=== PATIENT | female | born 1965 | race Caucasian/White ===

== ENCOUNTER 2020-04-25 21:05 | Emergency (ER) | payer SELFPAY ==
[2020-04-25] VITALS (7 sets, daily range): BP systolic 109–143; BP diastolic 66–82; PULSE 65–75; RESP 13–28; TEMP 36.6; O2SAT 97–99; BMI 25.7
--- NOTE | 2020-04-25 21:15 | ED.CHESTPAIN ---
HPI - Chest Pain General Chief Complaint: Chest Pain Stated Complaint: CHEST PAIN LEFT ARM NUMBNESS Time Seen by Provider: 04/25/20 21:14 History of Present Illness HPI narrative: 54-year-old woman with no specific medical history presents with 3 days of increasing chest pain. She has noticed some left arm pain over the last number of weeks that she had attributed to some type of nerve compression issue over the last 3 days she has noticed more of a pinching pain in the left pectoralis and left central chest area sometimes associated with a squeezing sensation but not associated with diaphoresis, dyspnea, nausea or exertion. Today the left pectoralis squeezing seemed more severe and seem to be radiating down her left arm so she came in for further evaluation. Related Data Allergies Allergy/AdvReac Type Severity Reaction Status Date / Time aspirin Allergy Severe Anaphylaxis Verified 04/25/20 21:33 Review of Systems Review of Systems Narrative: Pertinent positive and negative findings as per HPI Remainder of review of systems is otherwise unremarkable for Constitutional: Fevers, chills, weakness ENT: No sore throat, neck pain, ear pain Respiratory: Cough, wheeze, dyspnea GI: Nausea, vomiting, diarrhea, change in bowel habits, black or bloody stools : Dysuria, hematuria, flank pain MS: Muscle weakness, numbness, joint swelling or warmth Skin: Rashes, nonhealing lesions Neuro: Syncope, dizziness, tingling Patient History Social History Smoking Status: Unknown if ever smoked Exam Narrative Exam Narrative: General: Healthy appearing, in no acute distress. Able to give a complete and coherent history. Well-nourished well-developed HEENT: Moist mucous membranes, normal sclera with reactive pupils, Neck: supple, no reproducible pain down the arm or into the upper chest with manipulation of cervical spine. No paraspinous muscle spasm. Chest: Pain is not reproduced with manipulation of the left pectoralis muscle or palpation along the sternal border Respiratory: Lungs are clear to auscultation, no wheezing no rales no rhonchi. Full and symmetrical air movement Cardiac: Regular rate and rhythm no murmurs no bruits Abdomen: Soft nontender good bowel tones, no flank pain Skin: Warm and dry, no rashes Neurologic: Grossly neurologically intact with no obvious asymmetries or abnormalities Extremities: No trauma, well perfused Psych: Cooperative, appropriate insight and affect Initial Vital Signs Initial Vital Signs: Vital Signs Temperature 97.8 F 04/25/20 21:22 Pulse Rate 74 04/25/20 21:22 Respiratory Rate 18 04/25/20 21:22 Blood Pressure 130/76 04/25/20 21:22 Pulse Oximetry 97 04/25/20 21:22 Course Orders Ordered: ED Orders 04/25/20 21:34 XR chest 1V Stat 04/25/20 21:41 Complete Blood Count AUTO DIFF Stat Comprehensive Metabolic Panel Stat Lipase Stat Partial Thromboplastin Time Stat Prothrombin Time INR Stat Troponin & CK Cardiac Panel Stat Discontinued Medications Acetaminophen (Tylenol) 120 mg PA Q4H PRN PRN Reason: Fever/Mild Pain (1-3) Vital Signs Vital signs: Vital Signs - 8 hr 04/25/20 22:30 04/25/20 23:00 04/25/20 23:30 Temperature Pulse Rate 70 66 65 Respiratory Rate 19 15 13 Blood Pressure 120/68 115/72 109/66 Pulse Oximetry 97 97 97 04/26/20 00:00 04/26/20 00:30 04/26/20 01:00 Temperature Pulse Rate 67 64 65 Respiratory Rate 15 21 13 Blood Pressure 121/72 123/72 114/72 Pulse Oximetry 98 98 98 04/26/20 02:07 Temperature 98.6 F Pulse Rate 66 Respiratory Rate 16 Blood Pressure 118/73 Pulse Oximetry 98 MDM - Chest Pain Medical Records Data Attestation: I reviewed the patient's medical records. Lab Data Attestation: I reviewed the patient's lab results. Result diagrams: 04/25/20 21:41 04/25/20 21:41 Labs: Lab Results 04/25/20 04/25/20 04/25/20 Range/Units 21:41 21:41 21:41 WBC 6.7 (4.5-11.0) X10^3/uL RBC 4.47 (4.0-5.2) X10^6/uL Hgb 12.5 (12.0-16.0) g/dL Hct 37.6 (36-46) % MCV 84.3 (80-100) fL MCH 28.1 (26-34) PG MCHC 33.3 (30-36) % RDW 13.7 (11.6-14.8) % Plt Count 263 (150-400) X10^3/uL Neut % (Auto) 57.4 (50-75) % Lymph % (Auto) 26.9 (25-40) % [place] % (Auto) 10.7 (3-14) % Eos % (Auto) 3.9 (2-4) % Baso % (Auto) 1.1 (0-2) % Neut # (Auto) 3800 (3798-3728) /uL Lymph # (Auto) 1800 (2888-1835) /uL [place] # (Auto) 700 (0-900) /uL Eos # (Auto) 300 (0-450) /uL Baso # (Auto) 100 (0-100) /uL PT 11.0 (10.1-12.7) SECONDS INR 1.0 (0.9-1.3) APTT 42 H (26.4-36.2) SECONDS Sodium 139 (137-145) mmol/L Potassium 3.4 (3.4-5.1) mmol/L Chloride 103 (98-107) mmol/L Carbon Dioxide 29 (22-32) mmol/L BUN 18 H (7-17) mg/dL Creatinine 0.58 (0.52-1.04) mg/dL Estimated GFR > 60.0 (>60) mL/min BUN/Creatinine Ratio 31.0 H (6-22) Glucose 110 H (70-100) mg/dL Calcium 10.2 (8.4-10.2) mg/dL Total Bilirubin 0.3 (0.2-1.3) mg/dL AST 24 (14-36) IU/L ALT 16 (<35) IU/L Alkaline Phosphatase 78 (38-126) U/L Total Creatine Kinase 60 (30-135) U/L CK-MB (CK-2) TNP CK-MB (CK-2) Rel Index TNP Troponin I < 0.012 (0.01-0.034) ng/mL Total Protein 7.4 (6.3-8.2) g/dL Albumin 4.7 (3.5-5.0) g/dL Globulin 2.7 (1.7-4.1) g/dL Albumin/Globulin Ratio 1.7 (1.0-2.8) Lipase 218 (23-300) U/L Imaging Data Chest x-ray: Attestation: I personally reviewed and interpreted this imaging study as follows: My Impression: No acute changes ECG Data Attestation: I personally reviewed and interpreted this ECG as follows: Interpretation: Normal sinus rhythm6 at a rate of8 Normal intervals, normal axis No acute ischemic changes MDM Narrative Medical decision making narrative: 54-year-old otherwise healthy woman presents with 3 days of chest pain. Workup is entirely reassuring with no evidence of acute coronary syndrome, NSTEMI or STEMI, pulmonary embolism, infection, pneumothorax or acute musculoskeletal injury. Suspect that this is related to radicular pain from the neck. Reassurance is given. She is safe for home discharge. Encouraged her to establish care with a find primary care physician she may well benefit from stress testing for further cardiac risk stratification and she will certainly benefit from routine cancer screening studies. Discharge Plan Departure Patient Disposition: Home Clinical Impression: Atypical chest pain Discharge Date/Time: 04/26/20 02:07 Instructions: DI for Atypical Chest Pain Activity Restrictions/Additional Instructions: Thank you for coming in today, it was definitely the correct choice to make. Your labs studies and exam are all very reassuring. I am not finding any evidence of a heart attack or heart attack like syndrome. There is no evidence of infection, collapsed lung or other life-threatening issues to cause her pain. I do believe the most likely explanation may end up being nerve pain from your neck. I would recommend that you establish care with a primary care physician, please contact our Health Resource referral line at [phone]. They can help you find a primary care physician. When you are healthy, it is nice to stay healthy and you are mature enough at this point the putting a bit of effort into maintaining her health is well worth it;) If you have new or worsening symptoms have increasing pain with sweating and shortness of breath or other issues of concern, it would be very appropriate to return to the emergency room for further evaluation. I wish you the best
--- NOTE | 2020-04-25 21:34 | DI.RAD.S_ITS ---
PROCEDURE: XR CHEST 1V INDICATIONS: chest pain TECHNIQUE: One view of the chest was acquired. COMPARISON: None. FINDINGS: Surgical changes and devices: None. Lungs and pleura: Lungs are clear. No pleural effusions or pneumothorax. Mediastinum: Mediastinal contours appear normal. Heart size is normal. Bones and chest wall: No suspicious bony lesions. Overlying soft tissues appear unremarkable. IMPRESSION: No acute cardiopulmonary disease process. Dictated by: Eloise Zepeda MD, PhD on 04/26/2020 at 8:54 Approved by: Eloise Zepeda MD, PhD on 04/26/2020 at 8:54
[2020-04-25 21:49] LABS: Add Manual Diff / Slide Review NO; Basophils Absolute Auto 100 /uL (0-100); Basophils Percent Auto 1.1 % (0-2); Eosinophils Absolute Auto 300 /uL (0-450); Eosinophils Percent Auto 3.9 % (2-4); Hematocrit 37.6 % (36-46); Hemoglobin 12.5 g/dL (12.0-16.0); Lymphocytes Absolute Auto 1800 /uL (1100-4500); Lymphocytes Percent Auto 26.9 % (25-40); Mean Corpuscular HGB Conc 33.3 % (30-36); Mean Corpuscular Hemoglobin 28.1 PG (26-34); Mean Corpuscular Volume 84.3 fL (80-100); Monocytes Absolute Auto 700 /uL (0-900); Monocytes Percent Auto 10.7 % (3-14); Neutrophils Absolute Auto 3800 /uL (1500-7000); Neutrophils Percent Auto 57.4 % (50-75); Platelet Count 263 X10^3/uL (150-400); Red Blood Cell Count 4.47 X10^6/uL (4.0-5.2); Red Cell Distribution Width 13.7 % (11.6-14.8); White Blood Cell Count 6.7 X10^3/uL (4.5-11.0)
[2020-04-25 21:59] LABS: PTT Partial Thromboplastin Tim 42 SECONDS (26.4-36.2)
[2020-04-25 22:01] LABS: Alanine Aminotransferase 16 IU/L (<35); Albumin 4.7 g/dL (3.5-5.0); Albumin Globulin Ratio 1.7 (1.0-2.8); Alkaline Phosphatase 78 U/L (38-126); Aspartate Aminotransferase 24 IU/L (14-36); Bilirubin Total 0.3 mg/dL (0.2-1.3); Blood Urea Nitrogen 18 mg/dL (7-17); Calcium 10.2 mg/dL (8.4-10.2); Carbon Dioxide 29 mmol/L (22-32); Chloride 103 mmol/L (98-107); Creatine Kinase 60 U/L (30-135); Estimated Glomerular Filt Rate > 60.0 mL/min (>60); Globulin 2.7 g/dL (1.7-4.1); Glucose 110 mg/dL (70-100); HEMOLYSIS 22 (0-50); Lipase 218 U/L (23-300); Potassium 3.4 mmol/L (3.4-5.1); Sodium 139 mmol/L (137-145); Total Protein 7.4 g/dL (6.3-8.2)
[2020-04-25 22:13] LABS: Troponin I < 0.012 ng/mL (0.01-0.034)
[2020-04-26] VITALS: BP 121/72; PULSE 67; RESP 15; O2SAT 98
[2020-04-26 00:30] VITALS: BP 123/72; PULSE 64; RESP 21; O2SAT 98
[2020-04-26 01:00] VITALS: BP 114/72; PULSE 65; RESP 13; O2SAT 98
[2020-04-26 02:07] VITALS: BP 118/73; PULSE 66; RESP 16; TEMP 37; O2SAT 98
== END 2020-04-26 02:07 | disposition home or self-care (01) ==
PROVIDERS: Emergency Provider Emergency Medicine
DX: R07.89 Other chest pain (principal)
CPT/HCPCS: 36415; 71045; 80053; 82550; 83690; 84484; 85025; 85610; 85730; 93005; 99284